=== PATIENT | male | born 1960 | race Caucasian/White ===

== ENCOUNTER → 2022-01-01 | Outpatient (CLI) | payer OTHER, SELFPAY ==
--- NOTE | 2022-01-01 13:06 | ECHOD_ITS ---
Version 2 Reason For Study: HOCM Procedure This was a 2D Doppler, Color Flow transthoracic echocardiogram. Myocardial strain analysis was performed in this exam to aid in the assessment of cardiac function. Exam performed in department. Left Ventricle Normal LV size. Severe eccentric left ventricular hypertrophy. Left ventricular systolic function is normal. The estimated ejection fraction is 60 %. Stage 2 diastolic dysfunction. No regional wall motion abnormalities noted. Right Ventricle Normal RV size. Normal systolic function. Atria The left atrium is mildly enlarged. Normal right atrium. Mitral Valve Mild mitral valve prolapse. Mild (1+) eccentric mitral valve insufficiency. Tricuspid Valve Normal tricuspid valve. Mild (1+) tricuspid valve insufficiency. Pulmonary artery systolic pressure is 34 mmHg. Aortic Valve Trisinus/trileaflet aortic valve. Pulmonic Valve Normal pulmonic valve. Mild (1+) pulmonic valve insufficiency. Great Vessels Normal aortic root. The pulmonary artery is normal size. Normal inferior vena cava. Pericardium/Pleural No pericardial effusion. MMode/2D Measurements & Calculations LVIDd: 4.0 cm IVSd: 2.0 cm Ao root diam: 2.6 cm LVIDs: 2.2 cm LVPWd: 0.78 cm RVDd: 3.6 cm FS: 44.9 % LAV(MOD-bp): 69.0 ml LVAd ap4: 24.5 cm2 SV(MOD-sp4): 46.6 ml LAV(MOD-bp) Indexed: 35.5 ml/m2 LVLd ap4: 7.3 cm LAV(MOD-sp2): 53.0 ml EDV(MOD-sp4): 69.8 ml LAV(MOD-sp4): 84.3 ml EDV(sp4-el): 69.7 ml LVAs ap4: 12.2 cm2 LVLs ap4: 6.0 cm ESV(MOD-sp4): 23.2 ml ESV(sp4-el): 21.0 ml EF(MOD-sp4): 66.7 % EF(sp4-el): 69.9 % SV(sp4-el): 48.7 ml LA A4 area: 24.9 cm2 LA dimension(2D): 3.5 cm RA A4 area: 16.4 cm2 Doppler Measurements & Calculations MV E max piero: 72.7 cm/sec Lat Peak E' Piero: 9.8 cm/sec Med Peak E' Piero: 5.7 cm/sec MV A max piero: 48.2 cm/sec E/E' lat: 7.4 E/E' med: 12.7 MV E/A: 1.5 Ao V2 max: 115.5 cm/sec LV V1 max: 93.0 cm/sec PA V2 max: 89.8 cm/sec Ao max P.3 mmHg LV V1 max P.5 mmHg Ao V2 mean: 86.0 cm/sec Ao mean P.2 mmHg Ao V2 VTI: 25.1 cm PI end-d piero: 130.6 cm/sec TR max piero: 276.0 cm/sec TR max P.5 mmHg ECHO/Echo Complete Interpretation Summary Normal LV size. Severe eccentric left ventricular hypertrophy. Left ventricular systolic function is normal. The estimated ejection fraction is 60 %. Stage 2 diastolic dysfunction. No significant gradient noted via Valsalva. Mild (1+) eccentric mitral valve insufficiency. The global longitudinal strain is mildly abnormal. The global longitudinal stra in = -16.5% (abnormal). Ordering Physician: Ronnell Isaacs Referring Physician: Ronnell Isaacs Performed By: Gisella Mortensen, VIRIDIANA, RVT
== END | disposition home or self-care (01) ==
LOC: CVS 13:05
PROVIDERS: PCP Family Medicine; Referring Provider Family Medicine; Visit Provider Family Medicine
DX: I42.1 Obstructive hypertrophic cardiomyopathy (principal)
CPT/HCPCS: 93306

== ENCOUNTER → 2022-04-04 | Outpatient (CLI) | payer OTHER, SELFPAY | END | disposition home or self-care (01) | LOC: PSN 12:00 | PROVIDERS: PCP Family Medicine; Visit Provider Internal Medicine Cardiovascular Disease | DX: I42.1 Obstructive hypertrophic cardiomyopathy (principal) | CPT/HCPCS: 93225; 93226 ==

== ENCOUNTER → 2022-06-26 | Outpatient (CLI) | payer OTHER, SELFPAY ==
--- NOTE | 2022-06-26 14:30 | RAD_ITS ---
STUDY: X-RAY CHEST REASON FOR EXAM: Male, 62 years old. FEVER, LLL RALES TECHNIQUE: PA and lateral views of the chest. COMPARISON: None. FINDINGS: Mild opacities overlie the left lower lobe abutting the hemidiaphragm. There is no demonstrated pleural abnormality. Normal size heart. Normal mediastinum and rufina. Normal visualized pulmonary arteries. Normal visualized aortic arch and descending thoracic aorta. Normal visualized thoracic spine. Normal visualized ribs, clavicles, and shoulders. There is no demonstrated abnormality of the visualized soft tissue structures of the upper abdomen. RAD/Chest PA and Lateral IMPRESSION: Findings concerning for early pneumonia/infiltrate within the left lower lobe as seen on frontal projection. Electronically Signed: Bruno Ansari DO at 16:34 EDT ,
== END | disposition home or self-care (01) ==
LOC: MTRAD 14:29
PROVIDERS: PCP Family Medicine; Referring Provider Family Medicine; Visit Provider Family Medicine
DX: R05.9 Cough, unspecified (principal)
CPT/HCPCS: 71046

== ENCOUNTER → 2024-04-05 | Outpatient (CLI) | payer MEDICARE, OTHER, SELFPAY ==
[2024-04-05 08:25] LABS: Absolute Lymphocyte Count 3.06 X10^3/uL (0.83-4.51); Absolute Neutrophil Count 4.5 X10^3/uL (2.0-7.7); Basophil# 0.07 X10^3/uL; Basophil% 0.8 % (0-1); Eosinophil# 0.32 X10^3/uL; Eosinophils% 3.6 % (0-5); Hematocrit 42.4 % (40-54); Hemoglobin 14.4 g/dL (13.0-16.5); Lymphocyte # 3.06 X10^3/ul (0.83-4.51); Lymphocyte % 34.8 % (19-41); Mean Corpuscular Hgb 31.2 pg (27.0-32.0); Mean Platelet Vol. 9.5 fl (6.2-12.0); Monocyte# 0.84 X10^3/uL; Monocyte% 9.5 % (0-10); NRBC Flagged by Analyzer 0 % (0-5); Neutrophil # 4.46 X10^3/uL (2.7-7.7); Neutrophil % 50.7 % (47-70); Platelet Count 255 K/mm3 (150-450); RBC Distribution Width CV 12.7 % (11.6-14.6); RBC Distribution Width SD 42.5 fl (35.1-43.9); Red Blood Count 4.61 M/mm3 (4.6-6.2); White Blood Count 8.8 K/mm3 (4.4-11.0)
[2024-04-05 08:54] LABS: AST(SGOT) 22 U/L (15-37); Alanine Aminotransfer ALT/SGPT 26 U/L (16-61); Albumin, Serum 3.7 g/dL (3.2-5.0); Alkaline Phosphatase 45 U/L (45-117); Anion Gap 5 (5-15); BUN 24 mg/dL (7-18); Chloride 105 mmol/L (98-107); Cholesterol 229 mg/dL (200); EST Glomerular Filtration Rate 64 mL/min (>60); Est Glom Filt Rate - Afr Amer 78 mL/min (>60); Globulin 3.8 g/dL (2.2-4.2); Glucose 85 mg/dL (74-106); High Density Lipoprotein 81 mg/dL; PSA,Total - Annual Screen 0.47 ng/mL (0.00-4.00); Potassium 3.9 mmol/L (3.5-5.1); Protein, Total 7.5 g/dL (6.4-8.2); Sodium Level 139 mmol/L (136-145); Triglycerides 91 mg/dL; Very Low Density Lipoprotein 18 mg/dL (5-40)
== END | disposition home or self-care (01) ==
LOC: LAB 07:28
PROVIDERS: PCP Family Medicine; Visit Provider Family Medicine
DX: R06.00 Dyspnea, unspecified (principal); R63.5 Abnormal weight gain; E78.5 Hyperlipidemia, unspecified; Z12.5 Encounter for screening for malignant neoplasm of prostate
CPT/HCPCS: 36415; 80053; 80061; 84153; 84443; 85025; G0103

== ENCOUNTER → 2024-04-11 | Outpatient (CLI) | payer MEDICARE, OTHER, SELFPAY ==
--- NOTE | 2024-04-11 12:55 | ECHOD_ITS ---
Reason For Study: HCM Procedure This was a 2D Doppler, Color Flow transthoracic echocardiogram. Exam performed in department. Left Ventricle Normal LV size. Severe eccentric left ventricular hypertrophy. Left ventricular systolic function is normal. The left ventricular ejection fraction is 60 %. No regional wall motion abnormalities noted. Right Ventricle Normal RV size. Normal systolic function. Atria Normal left atrium. Normal right atrium. Mitral Valve Normal mitral valve. Mild-Moderate (1-2+) eccentric mitral valve insufficiency. Tricuspid Valve Normal tricuspid valve. Mild (1+) tricuspid valve insufficiency. Pulmonary artery systolic pressure is 33 mmHg. Aortic Valve Trisinus/trileaflet aortic valve. Mild (1+) aortic valve insufficiency. Pulmonic Valve Normal pulmonic valve. Great Vessels Normal aortic root. The pulmonary artery is normal size. Normal inferior vena cava. Pericardium/Pleural No pericardial effusion. MMode/2D Measurements & Calculations LVIDd: 3.6 cm IVSd: 2.4 cm Ao root diam: 2.8 cm LVIDs: 2.1 cm LVPWd: 0.91 cm RVDd: 3.5 cm FS: 41.3 % _ LAV(MOD-bp): 58.3 ml LVAd ap4: 25.5 cm2 LVAd ap2: 21.5 cm2 LAV(MOD-bp) Indexed: 30.3 ml/m2 LVLd ap4: 7.9 cm LVLd ap2: 7.5 cm LAV(MOD-sp2): 62.2 ml EDV(MOD-sp4): 69.9 ml EDV(MOD- sp2): 55.4 ml LAV(MOD-sp4): 47.8 ml EDV(sp4-el): 70.2 ml EDV(sp2- el): 52.3 ml LVAs ap4: 11.2 cm2 LVAs ap2: 11.9 cm2 LVLs ap4: 6.6 cm LVLs ap2: 6.7 cm ESV(MOD-sp4): 20.4 ml ESV(MOD- sp2): 22.5 ml ESV(sp4-el): 16.2 ml ESV(sp2- el): 18.0 ml EF(MOD-sp4): 70.8 % EF(MOD- sp2): 59.4 % EF(sp4-el): 76.9 % _ SV(MOD-sp4): 49.5 ml SV(MOD-sp2): 32.9 ml SV(sp4- el): 54.0 ml SI(MOD-sp4): 25.7 ml/m2 SI(MOD-sp2): 17.1 ml/m2 _ LA A4 area: 19.0 cm2 LA dimension(2D): 3.8 cm RA A4 area: 20.3 cm2 _ TAPSE: 2.8 cm Doppler Measurements & Calculations MV E max piero: 66.9 cm/sec Med Peak E' Piero: 8.1 cm/sec Ao V2 max: 113.8 cm/sec MV A max piero: 63.6 cm/sec E/E' med: 8.2 Ao max P.2 mmHg MV E/A: 1.1 Ao V2 mean: 80.4 cm/sec Ao mean P.8 mmHg Ao V2 VTI: 25.0 cm AV (velocity ratio): 0.79 _ LV V1 max: 88.2 cm/sec PA V2 max: 85.6 cm/sec TR max piero: 270.6 cm/sec LV V1 max P.1 mmHg TR max P.3 mmHg LV V1 mean P.6 mmHg LV V1 mean: 57.2 cm/sec LV V1 VTI: 19.7 cm ECHO/Echo Complete Interpretation Summary Normal LV size. Left ventricular systolic function is normal. The left ventricular ejection fraction is 60 %. Severe eccentric left ventricular hypertrophy. Mild (1+) tricuspid valve insufficiency. Ordering Physician: Ronnell Isaacs Referring Physician: Ronnell Isaacs Performed By: Yue Thakur RDCS
== END | disposition home or self-care (01) ==
LOC: CVS 12:55
PROVIDERS: PCP Family Medicine; Referring Provider Family Medicine; Visit Provider Family Medicine
DX: I42.1 Obstructive hypertrophic cardiomyopathy (principal)
CPT/HCPCS: 93306